=== PATIENT | female | born 1960 | race Caucasian/White ===

== ENCOUNTER → 2017-07-18 | Outpatient (CLI) | payer OTHER ==
--- NOTE | 2017-07-22 09:38 | MM ---
Reason for exam: screening (asymptomatic). Last mammogram was performed 2 years and 6 months ago. History: Took hormonal contraceptives for 7 years beginning at age 19. Taking progesterone beginning at age 52. Physical Findings: A clinical breast exam by your physician is recommended on an annual basis and results should be correlated with mammographic findings. MG Screening Mammo w CAD Bilateral CC and MLO view(s) were taken. Prior study comparison: January 10, 2015, bilateral MG screening mammo w CAD. October 29, 2013, bilateral digital screening mammo w/CAD. The breast tissue is heterogeneously dense. This may lower the sensitivity of mammography. Focal asymmetry outer right CC view. No significant changes when compared with prior studies. ASSESSMENT: Incomplete: need additional imaging evaluation, BI-RAD 0 RECOMMENDATION: Special view mammogram of the right breast. If lesion persists on supplemental views, image directed ultrasound is recommended. [facility] will attempt to contact patient to return for supplemental views and ultrasound if indicated.
== END | disposition home or self-care (01) ==
LOC: RADMAMWWP 08:00
PROVIDERS: ATTEND Internal Medicine
DX: Z12.31 Encounter for screening mammogram for malignant neoplasm of breast (principal)

== ENCOUNTER → 2017-07-23 | Outpatient (CLI) | payer BC, OTHER ==
--- NOTE | 2017-07-23 11:58 | MM ---
Reason for exam: additional evaluation requested from abnormal screening. Last mammogram was performed less than 1 month ago. History: Took hormonal contraceptives for 7 years beginning at age 19. Taking progesterone beginning at age 52. Physical Findings: Nurse did not find any significant physical abnormalities on exam. MG Work Up Mamm w CAD RT CC, MLO, and spot compression LM view(s) were taken of the right breast. Prior study comparison: July 18, 2017, bilateral MG screening mammo w CAD. January 10, 2015, bilateral MG screening mammo w CAD. There is no discrete abnormality that persists on additional views. These results were verbally communicated with the patient and result sheet given to the patient on 07/23/16. ASSESSMENT: Negative, BI-RAD 1 RECOMMENDATION: Return to routine screening mammogram schedule for both breasts.
== END | disposition home or self-care (01) ==
LOC: RADMAMWWP 11:03
PROVIDERS: ATTEND Internal Medicine
DX: R92.8 Other abnormal and inconclusive findings on diagnostic imaging of breast (principal)
CPT/HCPCS: 77065

== ENCOUNTER → 2020-08-16 | Outpatient (CLI) | payer BC | END | disposition home or self-care (01) | LOC: LABWHC1 10:53 | PROVIDERS: ATTEND Otolaryngology | DX: Z20.822 Contact with and (suspected) exposure to COVID-19 (principal) | CPT/HCPCS: 87502; U0003; C9803; U0005 ==

== ENCOUNTER → 2022-12-09 | Outpatient (CLI) | payer BC ==
--- NOTE | 2022-12-09 09:27 | BD ---
EXAMINATION TYPE: Axial Bone Density DATE OF EXAM: 12/09/2022 CLINICAL HISTORY: 62 years old Female. ICD-10 CODE: M859 DISORDER OF BONE Height: 66 Weight: 136 FRAX RISK QUESTIONS: nothing to note here RISK FACTORS HISTORY OF: Diet low in dairy products/other sources of calcium: yes Postmenopausal woman: yes, at 57 Lost more than 2 inches in height since high school: no Hyperparathyroidism: no Adrenal Insufficiency: no MEDICATIONS: Additional Medications: venlafaxine, reflux meds, vit d and calcium Additional History: anxiety, reflux, EXAM MEASUREMENTS: Bone mineral densitometry was performed using the [employer] System. Bone mineral density as measured about the Lumbar spine is: ----- L1-L4(G/cm2): 1.052 T Score Values are as follows: ----- L1: -1.1 ----- L2: -1.1 ----- L3: -0.8 ----- L4: -1.4 ----- L1-L4: -1.1 Z Score Values are as follows: ----- L1: 0.2 ----- L2: 0.2 ----- L3: 0.6 ----- L4: 0.0 ----- L1-L4: 0.3 Bone mineral density is first DEXA study....baseline. Bone mineral density about the R hip (g/cm2): 0.884 Bone mineral density about the L hip (g/cm2): 0.934 T Score values are as follows: -----R Neck: -1.2 -----L Neck: -1.5 -----R Total: -1.0 -----L Total: -0.6 Z Score values are as follows: -----R Neck: 0.1 -----L Neck: -0.1 -----R Total: 0.0 -----L Total: 0.4 Bone mineral density is a baseline study. FRAX%s: The graph provided illustrates a 7.6% chance for a major osteoporotic fx and a 0.7% chance fo r the hips probability for fx in 10 years time. IMPRESSION: Osteopenia (T Score between -2.5 and -1). There is slightly increased risk of fracture and the patient may be considered for treatment. Re-Screen 2-5 years. NOTE: T-SCORE=SD OF THE YOUNG ADULT MEAN.
--- NOTE | 2022-12-10 08:21 | MM ---
Reason for Exam: Screening (asymptomatic). Last mammogram was performed 5 year(s) and 5 month(s) ago. Patient History: Menarche at age 16. First Full-Term at age 27. Hysterectomy at age 41. Postmenopausal. Progesterone for 6 years, 1 month, from age 52 until age 58. Hormonal Contraceptives, starting at age 19 for 7 years. Risk Values: Lanie 5 year model risk: 1.5%. NCI Lifetime model risk: 7.4%. Prior Study Comparison: 01/10/2015 Bilateral Screening Mammogram, [facility]. 07/18/2017 Bilateral Screening Mammogram, [facility]. 07/23/2017 Right Diagnostic Mammogram, [facility]. Tissue Density: The breast tissue is heterogeneously dense. This may lower the sensitivity of mammography. Findings: Analyzed By CAD. There is no suspicious group of microcalcifications or new suspicious mass in either breast. Overall Assessment: Negative, BI-RAD 1 Management: Screening Mammogram of both breasts in [address] [facility] will attempt to contact patient to return for supplemental views and ultrasound if indicated. Patient should continue monthly self-breast exams. A clinical breast exam by your physician is recommended on an annual basis. This exam should not preclude additional follow-up of suspicious palpable abnormalities. Note on Lanie scores and lifetime risk: 1. A Lanie score greater than 3% is considered moderate risk. If this is the case, consider specialist referral to assess eligibility for a risk reducing agent. 2. If overall lifetime risk for the development of breast cancer is 20% or higher, the patient may qualify for future screening with alternating mammogram and breast MRI. Electronically signed and approved by: Juan José Benítez DO
== END | disposition home or self-care (01) ==
LOC: RADMAMWWP 08:06
PROVIDERS: ATTEND Family Medicine
DX: Z12.31 Encounter for screening mammogram for malignant neoplasm of breast (principal); M85.89 Other specified disorders of bone density and structure, multiple sites; Z78.0 Asymptomatic menopausal state
CPT/HCPCS: 77063; 77067; 77080

== ENCOUNTER → 2023-04-28 | Outpatient (CLI) | payer SELFPAY ==
[2023-04-28 12:11] LABS: Creatinine,Urine Random 15.8 mg/dL; Protein/Creatinine Ratio,Urine 0.823
[2023-04-28 15:59] LABS: Chol/HDL Ratio 3.98 Ratio; Glucose 91 mg/dL (70-110); LDL Cholesterol,Calculated 148.5 mg/dL (0.0-131.0)
[2023-04-28 16:53] LABS: Appearance,Urine Clear (Clear); Bilirubin,Urine Negative (Negative); Blood,Urine Negative (Negative); Color,Urine Yellow (Yellow); Ketones,Urine Negative (Negative); Nitrite,Urine Negative (Negative); Specific Gravity,Urine 1.004 (1.001-1.030); Urobilinogen,Urine 0.2 E.U./DL
[2023-04-28 17:59] LABS: Bacteria,Urine None Seen (None Seen)
[2023-04-28 19:20] LABS: Microalbumin Creatinine Ratio <73 mg/g Cr (0-30); Urine Creatinine 16.4 mg/dL (28.0-217.0)
== END | disposition home or self-care (01) ==
LOC: LABWHC1 09:02
PROVIDERS: ATTEND Internal Medicine Nephrology
DX: Z00.5 Encounter for examination of potential donor of organ and tissue (principal)
CPT/HCPCS: 36415; 80061; 81001; 82043; 82565; 82570; 82947; 83036; 84156; 86850; 86900; 86901

== ENCOUNTER → 2024-05-26 | Outpatient (CLI) | payer BC ==
--- NOTE | 2024-05-26 14:51 | XR ---
EXAMINATION TYPE: XR chest 2V DATE OF EXAM: 05/26/2024 2:27 PM COMPARISON: 05/26/2024 CLINICAL INDICATION: Female, 64 years old with history of R059 COUGH; [facility] TECHNIQUE: XR chest 2V Frontal and lateral views of the chest. FINDINGS: Lungs/Pleura: There is no evidence of pleural effusion, focal consolidation, or pneumothorax. Pulmonary vascularity: Unremarkable. Heart/mediastinum: Cardiomediastinal silhouette is unremarkable. Musculoskeletal: No acute osseous pathology. Other findings: None IMPRESSION: No acute cardiopulmonary disease/process. [facility], , 05/26/2024 2:49 PM
== END | disposition home or self-care (01) ==
LOC: RADXRYALE 14:15
PROVIDERS: ATTEND Physician Assistant Medical
DX: R05.9 Cough, unspecified (principal)
CPT/HCPCS: 71046

== ENCOUNTER → 2024-05-31 | Outpatient (CLI) | payer BC ==
--- NOTE | 2024-06-04 13:03 | MM ---
Reason for Exam: Screening (asymptomatic). Last mammogram was performed 1 year(s) and 6 month(s) ago. Patient History: Menarche at age 16. First Full-Term at age 27. Hysterectomy at age 41. Postmenopausal. Progesterone for 6 years, 1 month, from age 52 until age 58. Hormonal Contraceptives, starting at age 19 for 7 years. Risk Values: Lanie 5 year model risk: 1.5%. NCI Lifetime model risk: 7.0%. Prior Study Comparison: 07/18/2017 Bilateral Screening Mammogram, [facility]. 07/23/2017 Right Diagnostic Mammogram, [facility]. 12/09/2022 Bilateral MG 3D screening mammo w/cad, [facility]. Tissue Density: The breasts are heterogeneously dense, which may obscure small masses. Findings: Analyzed By CAD. Right breast: There is no suspicious group of microcalcifications or new suspicious mass. Left breast: There is no suspicious group of microcalcifications or new suspicious mass. Overall Assessment: Negative, BI-RAD 1 Management: Screening Mammogram of both breasts in [address] [facility] will attempt to contact patient to return for supplemental views and ultrasound if indicated. Patient should continue monthly self-breast exams. A clinical breast exam by your physician is recommended on an annual basis. This exam should not preclude additional follow-up of suspicious palpable abnormalities. Note on Lanie scores and lifetime risk: 1. A Lanie score greater than 3% is considered moderate risk. If this is the case, consider specialist referral to assess eligibility for a risk reducing agent. 2. If overall lifetime risk for the development of breast cancer is 20% or higher, the patient may qualify for future screening with alternating mammogram and breast MRI. [facility], , 06/04/2024 1:00 PM. Electronically signed and approved by: Juan José Benítez DO
== END | disposition home or self-care (01) ==
LOC: RADMAMWWP 12:17
PROVIDERS: ATTEND Family Medicine
DX: Z12.31 Encounter for screening mammogram for malignant neoplasm of breast (principal); R92.333 Mammographic heterogeneous density, bilateral breasts; Z78.0 Asymptomatic menopausal state
CPT/HCPCS: 77063; 77067